=== PATIENT | male | born 1955 | race Caucasian/White ===

== ENCOUNTER 2022-04-04 05:16 | Day surgery (SDC) | payer MEDICARE, MEDICAID ==
[~2022-04-04] VITALS: Ht 177.8 cm; Wt 106.8 kg
[~2022-04-04 05:16] MED LIST: AMLO10TA55 PO; CARV25TA32 PO; CYAN-53 PO; DAPA5TAB PO; METF-1211 PO; MONT-40 PO; SODIUM CHLORIDE 0.9% 1,000 ML IV ONE
[2022-04-04] MEDS ORDERED: SODIUM CHLORIDE 0.9% 1,000 ML IV ONE (05:30)
[2022-04-04] MEDS ORDERED: SODIUM CHLORIDE 0.9% 1,000 ML ONE (05:38)
[2022-04-04] MEDS ORDERED: SEMA7TAB2 PO (05:56)
[2022-04-04] MEDS ORDERED: SITA1TAB6 PO (05:56)
[2022-04-04] MEDS ORDERED: FOLI-74 PO (05:56)
[2022-04-04] MEDS ORDERED: DiphenhydrAMINE HCL 50 MG CAPSULE ONE (06:18)
[2022-04-04] MEDS ORDERED: DIAZEPAM 5 MG TABLET ONE (06:18)
[2022-04-04] MEDS ORDERED: ASPIRIN 325 MG TABLET ONE (06:19)
[2022-04-04] MEDS ORDERED: ASPIRIN 81 MG CHEWABLE TABLET ONE (06:20)
[2022-04-04 06:31] LABS: GLUCOMETER DEV NAME(LOC) SDS.; GLUCOSE,POINT OF CARE 146 MG/DL (70-110)
[2022-04-04] MEDS ORDERED: FentaNYL CITRATE PF 100 MCG/2 ML VIAL ONE (07:07)
[2022-04-04] MEDS ORDERED: IOHEXOL 300 MG/ML 50 ML VIAL ONE (07:08)
[2022-04-04] MEDS ORDERED: HEPARIN SODIUM 1000 UNITS/NS 1,000 ML ONE (07:08)
[2022-04-04] MEDS ORDERED: SODIUM BICARBONATE 50 MEQ/50 ML VIAL ONE (07:08)
[2022-04-04] MEDS ORDERED: IOHEXOL 300 MG/ML 100 ML VIAL ONE (07:08)
[2022-04-04] MEDS ORDERED: LIDOCAINE/PF 1% 30 ML VIAL ONE (07:08)
[2022-04-04] MEDS ORDERED: MIDAZOLAM HCL 2 MG/2 ML VIAL ONE ×2 (07:08→07:10)
[2022-04-04] MEDS ORDERED: IOHEXOL 300 MG/ML 150 ML VIAL ONE (07:08)
[2022-04-04 07:25] VITALS: BP 125/80
[2022-04-04] MEDS ORDERED: DiphenhydrAMINE HCL 50 MG CAPSULE PO ONE (07:30)
[2022-04-04] MEDS ORDERED: DIAZEPAM 5 MG TABLET PO ONE (07:30)
[2022-04-04] MEDS ORDERED: ASPIRIN 81 MG CHEWABLE TABLET PO ONE (07:30)
[2022-04-04] MEDS ORDERED: IOHEXOL 300 MG/ML 150 ML VIAL ICOR ONE (07:45)
[2022-04-04] MEDS ORDERED: LIDOCAINE 1% 30 ML/SOD BICARB 8.4% 4 ML SQ ONE (07:45)
[2022-04-04] MEDS ORDERED: HEPARIN SODIUM 1000 UNITS/NS 1,000 ML IARTER ONE (07:45)
[2022-04-04] MEDS ORDERED: MIDAZOLAM HCL 2 MG/2 ML VIAL IVP ONE ×2 (08:00→08:15)
[2022-04-04] MEDS ORDERED: FentaNYL CITRATE PF 100 MCG/2 ML VIAL IVP ONE ×3 (08:00→08:30)
[2022-04-04 08:26] VITALS: BP 109/68
== END 2022-04-04 12:40 | disposition home or self-care (01) ==
LOC: CATHLAB 05:16
PROVIDERS: ATTEND Internal Medicine Interventional Cardiology
DX: R94.39 Abnormal result of other cardiovascular function study (principal); E66.01 Morbid (severe) obesity due to excess calories; I10 Essential (primary) hypertension; E78.5 Hyperlipidemia, unspecified; E11.9 Type 2 diabetes mellitus without complications; Z82.49 Family history of ischemic heart disease and other diseases of the circulatory system; Z79.899 Other long term (current) drug therapy; Z20.822 Contact with and (suspected) exposure to COVID-19
CPT/HCPCS: 82962; 93460; 99152; 99153; C1760; J1644; J2250; J3010; J3490 ×2; J7030; Q9967